=== PATIENT | female | born 1985 | race African-American/Black ===

== ENCOUNTER 2016-09-24 15:00 | Emergency (ER) | payer MEDICAID ==
[2016-09-24] MEDS ORDERED: IPRATROPIUM/ALBUTEROL 0.5-2.5 MG/3 ML AMPUL NEB ONE ×2 (15:08→16:24)
--- NOTE | 2016-09-24 15:09 | ER Document Report ---
ED Medical Screen (RME) - General Stated Complaint: COUGH Mode of Arrival: Ambulatory Information source: Patient Notes: Patient complains of flulike symptoms for the past 6 days. Patient had taken Tamiflu and steroids but denies any improvement in her symptoms. Patient complains of cough and diarrhea. Patient is still currently taking steroids. hx: Asthma I have greeted and performed a rapid initial assessment of this patient. A comprehensive ED assessment and evaluation of the patient, analysis of test results and completion of the medical decision making process will be conducted by additional ED providers. TRAVEL OUTSIDE OF THE [place] IN LAST 30 DAYS: No - Related Data Allergies/Adverse Reactions: spinach Allergy (Verified 06/10/16 09:35) Past Medical History - Past Medical History Cardiac Medical History: Reports: Hx Congestive Heart Failure - pt states resolved Pulmonary Medical History: Reports: Hx Asthma - Immunizations Hx Diphtheria, Pertussis, Tetanus Vaccination: No Physical Exam - Respiratory Respiratory status: No respiratory distress Breath sounds: Nonproductive cough, Wheezing
[2016-09-24] MEDS ORDERED: ALBUTEROL SULFATE 0.083% NEB 2.5 MG/3 ML AMPUL NEB ONE (16:24)
[2016-09-24] MEDS ORDERED: PREDNISONE 20 MG TABLET PO ONE (16:24)
--- NOTE | 2016-09-24 17:15 | ER Document Report ---
HPI - HPI Patient complains to provider of: COUGH Onset: Last week Onset/Duration: Persistent Quality of pain: Achy Severity: Severe Pain Level: 5 Context: TREATED FOR FLU LAST WEEK, STILL COUGHING. NO FEVER Associated Symptoms: Nonproductive cough, Rhinnorhea. denies: Fever Exacerbated by: Coughing Relieved by: Denies Similar symptoms previously: Yes Recently seen / treated by doctor: Yes Notes: PT HAS NOT BEEN TAKING ANY OTC COUGH/COLD MEDS TO HELP WITH SYMPTOMS. PT IS A SMOKER. - ROS ROS below otherwise negative: Yes Systems Reviewed and Negative: Yes All other systems reviewed and negative - CONSTITUTIONAL Constitutional: DENIES: Fever - EENT EENT: REPORTS: Nasal Drainage-Clear - NEURO Neurology: DENIES: Headache - CARDIOVASCULAR Cardiovascular: DENIES: Chest pain - RESPIRATORY Respiratory: REPORTS: Trouble Breathing, Coughing - GASTROINTESTINAL Gastrointestinal: DENIES: Abdominal Pain - URINARY Urinary: DENIES: Dysuria - REPRODUCTIVE Reproductive: DENIES: : - DERM Skin Color: Normal Skin Problems: None Past Medical History - General Information source: Patient - Social History Smoking Status: Current Every Day Smoker Cigarette use (# per day): Yes Chew tobacco use (# tins/day): No Frequency of alcohol use: None Drug Abuse: None Lives with: Family Family History: Reviewed & Not Pertinent Patient has suicidal ideation: No Patient has homicidal ideation: No - Past Medical History Cardiac Medical History: Reports: Hx Congestive Heart Failure - pt states resolved Pulmonary Medical History: Reports: Hx Asthma Surgical Hx: Negative - Immunizations Hx Diphtheria, Pertussis, Tetanus Vaccination: No Vertical Provider Document - CONSTITUTIONAL Agree With Documented VS: Yes Exam Limitations: No Limitations General Appearance: WD/WN, No Apparent Distress - INFECTION CONTROL TRAVEL OUTSIDE OF THE [place] IN LAST 30 DAYS: No - HEENT HEENT: Atraumatic, Normocephalic. negative: Pharyngeal Exudate, Pharyngeal Erythema, Tympanic Membrane Red, Tympanic Membrane Bulging Notes: + NASAL CONGESTION - NECK Neck: Normal Inspection, Supple - RESPIRATORY Respiratory: No Respiratory Distress, Wheezing O2 Sat by Pulse Oximetry: 100 - CARDIOVASCULAR Cardiovascular: Regular Rate, Regular Rhythm - GI/ABDOMEN Gastrointestinal: Abdomen Soft, Abdomen Non-Tender - MUSCULOSKELETAL/EXTREMETIES Musculoskeletal/Extremeties: CHERIE CASTANEDA - NEURO Level of Consciousness: Awake, Alert, Appropriate - DERM Integumentary: Warm, Dry, No Rash Course - Re-evaluation Re-evalutation: 09/24/16 17:11 LUNGS CTA AFTER 2 NEB TREATMENTS. - Vital Signs Vital signs: Temp Pulse Resp BP Pulse Ox 97.9 F 100 18 128/85 H 100 09/24/16 15:08 09/24/16 15:08 09/24/16 15:08 09/24/16 15:08 09/24/16 15:08 Discharge - Discharge Clinical Impression: Wheezing, Cough Condition: Good Disposition: HOME, SELF-CARE Additional Instructions: ANY OTC COUGH/COLD MED TO HELP WITH COLD SYMPTOMS STOP SMOKING CHEST XRAY WAS NORMAL INHALER EVERY 4 HRS X 2 DAYS, THEN EVERY 4 HRS NEEDED PREDNISONE TAPER PACK, START TOMORROW. DONE ALREADY GIVEN TODAY IN ER. FOLLOW UP WITH YOUR PCP MONDAY FOR RECHECK. RETURN NEEDED. Prescriptions: Prednisone [Deltasone 10 mg Tablet] 10 mg PO ASDIR PRN #21 tablet PRN Reason: Promethazine HCl/Codeine [Prometh-Codein 6.25-10 mg/5 ml] 5 ml PO Q6H #120 syrup Forms: Return to Work
[2016-09-24 17:44] VITALS: BP 123/78
== END 2016-09-24 17:50 | disposition home or self-care (01) ==
LOC: ER 15:00
DX: R06.2 Wheezing (principal); R05 Cough; F17.210 Nicotine dependence, cigarettes, uncomplicated
CPT/HCPCS: 94640 ×2; 99283; 71020; J7512; J7620

== ENCOUNTER 2017-05-31 17:31 | Emergency (ER) | payer SELFPAY ==
[2017-05-31] MEDS ORDERED: LIDOCAINE 1% INJ-PF (10 MG/ML) 30 ML SDV INJ ONE (18:16)
[2017-05-31] MEDS ORDERED: CEFTRIAXONE INJ 250 MG VIAL IM ONE (18:16)
[2017-05-31] MEDS ORDERED: AZITHROMYCIN 250 MG TABLET PO ONE (18:16)
--- NOTE | 2017-05-31 18:17 | ER Document Report ---
HPI - HPI Patient complains to provider of: Concern about STD Onset: Other - 6 days ago Onset/Duration: Persistent Pain Level: 0 Context: Patient states she was having intercourse 6 days ago and the condom broke. Patient states that the following day she took the Plan B pill. Patient states she has had vaginal discharge with cloudy urine and urinary frequency for the past 5 days. Patient denies any fever or abdominal tenderness. Patient would like testing for HIV as well as other STDs. Associated Symptoms: Other - Cloudy urine, urinary frequency, vaginal discharge. denies: Fever Exacerbated by: Denies Relieved by: Denies Similar symptoms previously: No Recently seen / treated by doctor: No - ROS ROS below otherwise negative: Yes Systems Reviewed and Negative: Yes All other systems reviewed and negative - CONSTITUTIONAL Constitutional: DENIES: Fever - GASTROINTESTINAL Gastrointestinal: DENIES: Nausea - URINARY Urinary: REPORTS: Frequency. DENIES: Dysuria - REPRODUCTIVE LMP: 05/14/17 Reproductive: REPORTS: Abnormal bleeding / discharge. DENIES: : - DERM Skin Color: Normal, Carpenter Skin Problems: None Past Medical History - General Information source: Patient Last Menstrual Period: 05/14/17 - Social History Smoking Status: Never Smoker Frequency of alcohol use: None Drug Abuse: None Occupation: food service sales representatives Family History: Reviewed & Not Pertinent Patient has suicidal ideation: No Patient has homicidal ideation: No - Past Medical History Cardiac Medical History: Reports: Hx Congestive Heart Failure - pt states resolved Pulmonary Medical History: Reports: Hx Asthma Renal/ Medical History: Denies: Hx Peritoneal Dialysis Surgical Hx: Negative - Immunizations Hx Diphtheria, Pertussis, Tetanus Vaccination: No Vertical Provider Document - CONSTITUTIONAL Agree With Documented VS: Yes Exam Limitations: No Limitations General Appearance: WD/WN, No Apparent Distress - INFECTION CONTROL TRAVEL OUTSIDE OF THE [place] IN LAST 30 DAYS: No - HEENT HEENT: Atraumatic, Normocephalic - NECK Neck: Normal Inspection, Supple - RESPIRATORY Respiratory: Breath Sounds Normal, No Respiratory Distress O2 Sat by Pulse Oximetry: 99 - CARDIOVASCULAR Cardiovascular: Regular Rate, Regular Rhythm, No Murmur - GI/ABDOMEN Gastrointestinal: Abdomen Soft, Abdomen Non-Tender, No Organomegaly - BACK Back: Normal Inspection. negative: CVA Tenderness-Right, CVA Tenderness-Left - MUSCULOSKELETAL/EXTREMETIES Musculoskeletal/Extremeties: MAEW - NEURO Level of Consciousness: Awake, Alert, Appropriate Motor/Sensory: No Motor Deficit - DERM Integumentary: Warm, Dry, No Rash Course - Vital Signs Vital signs: Temp Pulse Resp BP Pulse Ox 98.1 F 83 18 117/68 99 05/31/17 18:08 05/31/17 18:08 05/31/17 18:08 05/31/17 18:08 05/31/17 18:08 Discharge - Discharge Clinical Impression: Bacterial vaginosis, Concern about STD in female without diagnosis, Urinary symptom or sign Condition: Stable Disposition: HOME, SELF-CARE Instructions: Cephalexin ([facility]), Metronidazole ([facility]), Urinary Tract Infection ( [facility]), Vaginosis, Bacterial ([facility]) Additional Instructions: Return immediately for any new or worsening symptoms Followup with your primary care provider, call tomorrow to make a followup appointment You will need to follow-up with the primary care provider or the health department for further evaluation about possible concern about HIV exposure. A negative test initially does not mean that you may not still potentially have this infection. You will need repeat blood tests to rule this out. cultures are pending, we will call if you need any other treatment Prescriptions: Cephalexin Monohydrate [Keflex 500 mg Capsule] 500 mg PO BID 5 Days capsule Metronidazole [Flagyl 500 mg Tablet] 500 mg PO BID #14 tablet Referrals: [facility] [Provider Group] - Follow up as needed [facility] [NO LOCAL MD] - Follow up tomorrow
[2017-05-31 19:41] LABS: APPEARANCE,URINE SLIGHTLY-CLOUDY; BILIRUBIN,URINE NEGATIVE (NEGATIVE); GLUCOSE, URINE NEGATIVE (NEGATIVE); KETONES,URINE NEGATIVE (NEGATIVE); LEUKOCYTE ESTERASE,URINE SMALL (NEGATIVE); NITRITE,URINE NEGATIVE (NEGATIVE); PROTEIN,URINE NEGATIVE (NEGATIVE); URINE SPECIFIC GRAVITY 1.026
[2017-05-31] MEDS ORDERED: METRONIDAZOLE 500 MG TABLET PO ONE (19:50)
[2017-05-31 20:08] VITALS: BP 106/58
[2017-05-31 20:19] LABS: ADD HIVPANEL? NO; HIV (1 AND 2) ANTIBODY NEGATIVE (NEGATIVE)
[2017-05-31 21:14] LABS: CHLAM PCR NOT DETECTED (NOT DETECT)
== END 2017-05-31 20:07 | disposition home or self-care (01) ==
LOC: ER 17:31
DX: N76.0 Acute vaginitis (principal); B96.89 Other specified bacterial agents as the cause of diseases classified elsewhere; Z20.2 Contact with and (suspected) exposure to infections with a predominantly sexual mode of transmission
CPT/HCPCS: 99283; 96372; 36415; 87210; 81025; 86592; 81001; 86701; 87491; 87591; J3490; J0696

== ENCOUNTER 2017-08-20 13:34 | Emergency (ER) | payer SELFPAY ==
--- NOTE | 2017-08-20 14:06 | ER Document Report ---
ED Medical Screen (RME) - General Chief Complaint: Dizziness Stated Complaint: FEVER/STIFF NECK/DIZZY Time Seen by Provider: 08/20/17 14:04 Mode of Arrival: Ambulatory Information source: Patient TRAVEL OUTSIDE OF THE [place] IN LAST 30 DAYS: No - HPI Patient complains to provider of: fever, stiff neck Onset: Other - pt states she has had swollen lymph gland in back of her neck for several days. Now with fever and stiff neck - Related Data Allergies/Adverse Reactions: spinach Allergy (Verified 08/20/17 13:38) Home Medications: Current Home Medications No Home Medications 08/20/17 [History] Past Medical History - Social History Frequency of alcohol use: None Drug Abuse: None - Past Medical History Cardiac Medical History: Reports: Hx Congestive Heart Failure - pt states resolved Pulmonary Medical History: Reports: Hx Asthma Renal/ Medical History: Denies: Hx Peritoneal Dialysis - Immunizations Hx Diphtheria, Pertussis, Tetanus Vaccination: No Physical Exam - Vital signs Vitals: Temp Pulse Resp BP Pulse Ox 98.4 F 79 20 124/76 100 08/20/17 13:56 08/20/17 13:56 08/20/17 13:56 08/20/17 13:56 08/20/17 13:56 Course - Vital Signs Vital signs: Temp Pulse Resp BP Pulse Ox 98.4 F 79 20 124/76 100 08/20/17 13:56 08/20/17 13:56 08/20/17 13:56 08/20/17 13:56 08/20/17 13:56
[2017-08-20 14:54] LABS: ABSOLUTE EOSINOPHILS # (AUTO) 0.3 10^3/uL (0.0-0.6); ABSOLUTE LYMPHOCYTES (AUTO) 2.9 10^3/uL (0.5-4.7); ABSOLUTE MONOCYTES (AUTO) 0.7 10^3/uL (0.1-1.4); ABSOLUTE NEUT (AUTO) 3.5 10^3/uL (1.7-8.2); BASOPHILS % (AUTO) 0.3 % (0-2); EOSINOPHILS % (AUTO) 4.5 % (0-6); HEMATOCRIT 37.5 % (36.0-47.0); HEMOGLOBIN 12.1 g/dL (12.0-15.5); LYMPHOCYTES % (AUTO) 38.8 % (13-45); MEAN CORPUSCULAR HEMOGLOBIN 25.3 pg (27.0-33.4); MEAN CORPUSCULAR HGB CONC 32.4 g/dL (32.0-36.0); MEAN CORPUSCULAR VOLUME 78 fl (80-97); MONOCYTES % (AUTO) 9.9 % (3-13); PLATELET COUNT 277 10^3/uL (150-450); RED BLOOD COUNT 4.79 10^6/uL (3.72-5.28); RED CELL DISTRIBUTION WIDTH 14.9 % (11.5-14.0); SEGMENTED NEUTROPHILS % (AUTO) 46.5 % (42-78); TOTAL CELLS COUNTED % (AUTO) 100 %; WHITE BLOOD COUNT 7.5 10^3/uL (4.0-10.5)
[2017-08-20 15:03] LABS: APPEARANCE,URINE SLIGHTLY-CLOUDY; BILIRUBIN,URINE NEGATIVE (NEGATIVE); COLOR,URINE YELLOW; GLUCOSE, URINE NEGATIVE (NEGATIVE); KETONES,URINE NEGATIVE (NEGATIVE); LEUKOCYTE ESTERASE,URINE LARGE (NEGATIVE); NITRITE,URINE NEGATIVE (NEGATIVE); PROTEIN,URINE NEGATIVE (NEGATIVE); UROBILINOGEN,URINE NEGATIVE mg/dL (<2.0)
[2017-08-20 15:11] LABS: ALANINE AMINOTRANSFERASE 16 U/L (9-52); ALBUMIN 4.8 g/dL (3.5-5.0); ALKALINE PHOSPHATASE 76 U/L (38-126); ANION GAP 14 (5-19); ASPARTATE AMINO TRANSFERASE 18 U/L (14-36); BILIRUBIN,DIRECT 0.3 mg/dL (0.0-0.4); BILIRUBIN,TOTAL 0.5 mg/dL (0.2-1.3); BLOOD UREA NITROGEN 8 mg/dL (7-20); CALCIUM 10.2 mg/dL (8.4-10.2); CARBON DIOXIDE 25 mmol/L (22-30); CHLORIDE 104 mmol/L (98-107); GLUCOSE 99 mg/dL (75-110); POTASSIUM 4.4 mmol/L (3.6-5.0); SODIUM 143.1 mmol/L (137-145); TOTAL PROTEIN 8.7 g/dL (6.3-8.2)
[2017-08-20] MEDS ORDERED: OXYCODONE-ACETAMINOPHEN 5-325 MG TABLET PO ONE (16:56)
[2017-08-20] MEDS ORDERED: LIDOCAINE 1% INJ (10 MG/ML) 10 ML MDV INJ ONE (17:09)
[2017-08-20] MEDS ORDERED: LIDOCAINE 1% INJ-PF (10 MG/ML) 30 ML SDV ONE (17:13)
[2017-08-20] MEDS ORDERED: AMOXICILLIN TR/POT CLAVULANATE 500-125 MG TAB PO ONE (18:23)
--- NOTE | 2017-08-20 18:31 | ER Document Report ---
ED General - General Chief Complaint: Dizziness Stated Complaint: FEVER/STIFF NECK/DIZZY Time Seen by Provider: 08/20/17 14:04 Mode of Arrival: Ambulatory Information source: Patient TRAVEL OUTSIDE OF THE [place] IN LAST 30 DAYS: No - HPI Patient complains to provider of: Area to back of left neck Onset: Last week - She states that she has had this for approximately 1 week. It was larger and now is decreased inside. She states that it is markedly tender and when she bends her head forward she does get some pain and dizziness. Onset/Duration: Gradual Quality of pain: Burning Severity: Moderate Associated symptoms: None Exacerbated by: Movement Relieved by: Denies Similar symptoms previously: No Recently seen / treated by doctor: No - Related Data Allergies/Adverse Reactions: spinach Allergy (Verified 08/20/17 13:38) Past Medical History - General Information source: Patient - Social History Smoking Status: Never Smoker Frequency of alcohol use: None Drug Abuse: None Lives with: Family Family History: Reviewed & Not Pertinent Patient has suicidal ideation: No Patient has homicidal ideation: No - Past Medical History Cardiac Medical History: Reports: Hx Congestive Heart Failure - pt states resolved Pulmonary Medical History: Reports: Hx Asthma EENT Medical History: Reports: None Neurological Medical History: Reports: None Endocrine Medical History: Reports: None Renal/ Medical History: Reports: None. Denies: Hx Peritoneal Dialysis Malignancy Medical History: Reports: None GI Medical History: Reports: None Musculoskeltal Medical History: Reports None Psychiatric Medical History: Reports: None Traumatic Medical History: Reports: None Infectious Medical History: Reports: None Past Surgical History: Reports: None - Immunizations Hx Diphtheria, Pertussis, Tetanus Vaccination: No Review of Systems - Review of Systems Constitutional: No symptoms reported EENT: No symptoms reported Cardiovascular: No symptoms reported Respiratory: No symptoms reported Gastrointestinal: No symptoms reported Genitourinary: No symptoms reported Female Genitourinary: No symptoms reported Musculoskeletal: No symptoms reported Skin: No symptoms reported Hematologic/Lymphatic: No symptoms reported Neurological/Psychological: No symptoms reported Physical Exam - Vital signs Vitals: Temp Pulse Resp BP Pulse Ox 98.4 F 79 20 124/76 100 08/20/17 13:56 08/20/17 13:56 08/20/17 13:56 08/20/17 13:56 08/20/17 13:56 Notes: PHYSICAL EXAMINATION: GENERAL: Well-appearing, well-nourished and in mild distress secondary to discomfort of her neck. HEAD: Atraumatic, normocephalic. EYES: Pupils equal round and reactive to light, extraocular movements intact, conjunctiva are normal. ENT: Nares patent, oropharynx clear without exudates. Moist mucous membranes. NECK: Normal range of motion. Patient has a 3 x 3 nonfluctuant area to her left posterior suboccipital neck area. It is just below the skin. It is tender to palpation. There is no drainage. LUNGS: Breath sounds clear to auscultation bilaterally and equal. No wheezes rales or rhonchi. HEART: Regular rate and rhythm without murmurs ABDOMEN: Soft, nontender, nondistended abdomen. No guarding, no rebound. No masses appreciated. Female : deferred Musculoskeletal: Normal range of motion, no pitting or edema. No cyanosis. NEUROLOGICAL: Cranial nerves grossly intact. Normal speech, normal gait. Normal sensory, motor exams PSYCH: Normal mood, normal affect. SKIN: Warm, Dry, normal turgor, no rashes or lesions noted. Course - Re-evaluation Re-evalutation: 08/20/17 18:34 I did use ultrasound to assess the enlarged area of the patient's left posterior suboccipital area. There appeared to be a small area of fluctuance. I did try to introduce an 18-gauge needle to obtain fluid. However I was unable to obtain any fluid. At this point I did discuss with the patient that we will send her home on antibiotics as well as warm compresses. She is to return to the emergency department if she has any enlargement of that area, fevers, any other concerns. Patient was discharged home on [place] No. 6 and Augmentin for the next few days. She is to follow-up with care clinic or return here if she has any concerns. She left in stable condition - Vital Signs Vital signs: Temp Pulse Resp BP Pulse Ox 98.4 F 79 20 124/76 100 08/20/17 13:56 08/20/17 13:56 08/20/17 13:56 08/20/17 13:56 08/20/17 13:56 - Laboratory Result Diagrams: 08/20/17 14:19 08/20/17 14:19 Laboratory results interpreted by me: 01/08/20/17 08/20/17 14:19 14:19 14:19 MCV 78 L MCH 25.3 L RDW 14.9 H Total Protein 8.7 H Urine Blood SMALL H Ur Leukocyte Esterase LARGE H 08/20/17 18:42 [facility] strep negative Procedures - Incision and Drainage Left Posterior Neck Type: Simple Anesthetic type: 1% Lidocaine mL's of anesthetic: 2 I&D procedure: Betadine prep applied - I did not use an 18-gauge under ultrasound guidance to the patient's posterior suboccipital area. Unable to obtain any material. She tolerated the procedure well. Incision Method: Incision made with needle Adult Head Front/Back picture: 1 - Patient had a 3 cm x 4 cm tender enlargement in that area. There was a less than 1 cm area consistent with a pustule on top of that breaking to the skin. Discharge - Discharge Clinical Impression: Lymph node enlargement Condition: Stable Additional Instructions: Warm compresses to area 5 times daily. Take antibiotics as prescribed. Return to the emergency department if you have worsening symptoms fevers or any other concerns. Please follow-up to care clinic as we discussed. Prescriptions: Amox Tr/Potassium Clavulanate [Augmentin 875-125 Tablet] 1 tab PO BID 7 Days # 14 tablet Hydrocodone/Acetaminophen [[place] 5-325 mg Tabs (6 Tab/ER Disp)] 6 tab PO Q4 #6 dspk Referrals: [facility] [Provider Group] - Follow up in 3-5 days
[2017-08-20 18:46] VITALS: BP 112/77
== END 2017-08-20 18:40 | disposition home or self-care (01) ==
LOC: ER 13:34
PROC: 0H94XZZ Drainage of Neck Skin, External Approach (ICD-10-PCS; principal; 2017-08-20)
DX: R59.0 Localized enlarged lymph nodes (principal); R42 Dizziness and giddiness; R50.9 Fever, unspecified; M43.6 Torticollis
CPT/HCPCS: 99284; 36415; 87070; 87880; 85025; 81025; 86308; 80053; 81001; 10060; J3490

== ENCOUNTER 2019-03-14 22:07 | Emergency (ER) | payer SELFPAY ==
[2019-03-14] MEDS ORDERED: ASPIRIN 81 MG TABLET, CHEWABLE PO ONE (23:16)
--- NOTE | 2019-03-14 23:18 | ER Document Report ---
ED Medical Screen (RME) - General Chief Complaint: Chest Tightness Stated Complaint: CHEST PAIN Time Seen by Provider: 03/14/19 23:16 Mode of Arrival: Ambulatory Information source: Patient Notes: Patient presents reporting chest tightness yesterday that she attributed to an asthma attack. Patient states that she did use her inhaler and her wheezing resolved. Patient reports palpitations today. Patient does report a history of asthma atrial fibrillation cardiomyopathy as well as congestive heart failure. Patient states she is supposed to be taking metoprolol and has been noncompliant . Patient states that when she did have her palpitation symptoms today she did take her dose of metoprolol. I have greeted and performed a rapid initial assessment of this patient. A comprehensive ED assessment and evaluation of the patient, analysis of test results and completion of the medical decision making process will be conducted by additional ED providers. TRAVEL OUTSIDE OF THE [place] IN LAST 30 DAYS: No - Related Data Allergies/Adverse Reactions: spinach Allergy (Verified 08/20/17 13:38) Past Medical History - Past Medical History Cardiac Medical History: Reports: Hx Atrial Fibrillation, Hx Congestive Heart Failure - pt states resolved Pulmonary Medical History: Reports: Hx Asthma Renal/ Medical History: Denies: Hx Peritoneal Dialysis - Immunizations Hx Diphtheria, Pertussis, Tetanus Vaccination: No Physical Exam - Vital signs Vitals: Temp Pulse Resp BP Pulse Ox 98.0 F 56 L 18 120/81 99 03/14/19 22:28 03/14/19 22:28 03/14/19 22:28 03/14/19 22:28 03/14/19 22:28 - Respiratory Respiratory status: No respiratory distress Chest status: Nontender Breath sounds: Normal. No: Wheezing Chest palpation: Normal Course - Vital Signs Vital signs: Temp Pulse Resp BP Pulse Ox 98.0 F 56 L 18 120/81 99 03/14/19 22:28 03/14/19 22:28 03/14/19 22:28 03/14/19 22:28 03/14/19 22:28
[2019-03-15 00:12] LABS: ABSOLUTE BASOPHILS # (AUTO) 0.1 10^3/uL (0.0-0.2); ABSOLUTE EOSINOPHILS # (AUTO) 0.4 10^3/uL (0.0-0.6); ABSOLUTE LYMPHOCYTES (AUTO) 3.9 10^3/uL (0.5-4.7); ABSOLUTE MONOCYTES (AUTO) 0.6 10^3/uL (0.1-1.4); ABSOLUTE NEUT (AUTO) 2.7 10^3/uL (1.7-8.2); BASOPHILS % (AUTO) 0.7 % (0-2); EOSINOPHILS % (AUTO) 5.5 % (0-6); HEMATOCRIT 37.3 % (36.0-47.0); LYMPHOCYTES % (AUTO) 51.1 % (13-45); MEAN CORPUSCULAR HEMOGLOBIN 25.6 pg (27.0-33.4); MEAN CORPUSCULAR HGB CONC 32.2 g/dL (32.0-36.0); MEAN CORPUSCULAR VOLUME 79 fl (80-97); MONOCYTES % (AUTO) 8.1 % (3-13); PLATELET COUNT 301 10^3/uL (150-450); RED BLOOD COUNT 4.69 10^6/uL (3.72-5.28); RED CELL DISTRIBUTION WIDTH 14.6 % (11.5-14.0); SEGMENTED NEUTROPHILS % (AUTO) 34.6 % (42-78); TOTAL CELLS COUNTED % (AUTO) 100 %; WHITE BLOOD COUNT 7.7 10^3/uL (4.0-10.5)
--- NOTE | 2019-03-15 00:44 | RADIOLOGY REPORT (SQ) ---
EXAM DESCRIPTION: CLINICAL HISTORY: 33 years Female palpitations, tightness COMPARISON: 12/03/2018. FINDINGS: The cardiomediastinal silhouette appears unremarkable. No consolidating infiltrates or pleural effusions. No pneumothorax. IMPRESSION: No acute abnormality is identified.
[2019-03-15 01:38] LABS: ALBUMIN 4.5 g/dL (3.5-5.0); ALKALINE PHOSPHATASE 87 U/L (38-126); ANION GAP 8 (5-19); ASPARTATE AMINO TRANSFERASE 21 U/L (14-36); BILIRUBIN,DIRECT 0.3 mg/dL (0.0-0.4); BILIRUBIN,TOTAL 0.4 mg/dL (0.2-1.3); BLOOD UREA NITROGEN 10 mg/dL (7-20); CALCIUM 9.7 mg/dL (8.4-10.2); CARBON DIOXIDE 26 mmol/L (22-30); CHLORIDE 109 mmol/L (98-107); GLUCOSE 105 mg/dL (75-110); POTASSIUM 4.1 mmol/L (3.6-5.0); TOTAL PROTEIN 8.3 g/dL (6.3-8.2)
[2019-03-15 01:47] LABS: NT PRO BNP 69 pg/mL (<125)
[2019-03-15 01:51] LABS: TROPONIN I < 0.012 ng/mL
--- NOTE | 2019-03-15 02:11 | ER Document Report ---
ED General - General Chief Complaint: Chest Tightness Stated Complaint: CHEST PAIN Time Seen by Provider: 03/14/19 23:16 Mode of Arrival: Ambulatory Notes: 33-year-old female presents emergency department complaining of chest pressure and tightness that she states feels like there is "cornbread" in her chest and that she feels stuffy. Patient states that she is having a little bit of a flare of asthma where she had to use her inhaler 2 or 3 times yesterday and today and also is having some nasal and sinus congestion as well as postnasal drainage. Patient is concerned because the way that she is feeling right now is fairly similar to the way she felt in 2011 when she was having a flare of her congestive heart failure. Patient was diagnosed with CHF in 2009, her last assessment and echocardiogram was in 2014 and showed an ejection fraction of 68%. Patient has not been seen by kindergarten prep teacher since then. Of note patient was diagnosed with atrial fibrillation back in December and placed on metoprolol but she frequently does not take it because she already has low blood pressure and it makes her feel very weak when she takes it. Patient notes that she is worried about may be having hypothyroidism because she has gained some weight recently and has felt increasingly fatigued. Her daughter also has hypothyroidism that she is worried it may run in the family. TRAVEL OUTSIDE OF THE [place] IN LAST 30 DAYS: No - Related Data Allergies/Adverse Reactions: spinach Allergy (Verified 08/20/17 13:38) Past Medical History - General Information source: Patient - Social History Smoking Status: Never Smoker Chew tobacco use (# tins/day): No Frequency of alcohol use: None Drug Abuse: None Family History: Thyroid Disfunction - Daughter with hypothyroidism. Patient has suicidal ideation: No Patient has homicidal ideation: No - Past Medical History Cardiac Medical History: Reports: Hx Atrial Fibrillation, Hx Congestive Heart Failure - pt states resolved Pulmonary Medical History: Reports: Hx Asthma Renal/ Medical History: Denies: Hx Peritoneal Dialysis - Immunizations Hx Diphtheria, Pertussis, Tetanus Vaccination: No Review of Systems - Review of Systems Constitutional: See HPI, Weight gain EENT: See HPI, Nose congestion, Nose discharge, Sinus pressure, Sinus discharge Cardiovascular: See HPI, Chest pain Respiratory: See HPI, Short of breath Gastrointestinal: No symptoms reported -: Yes All other systems reviewed and negative Physical Exam - Vital signs Vitals: Temp Pulse Resp BP Pulse Ox 98.0 F 56 L 18 120/81 99 03/14/19 22:28 03/14/19 22:28 03/14/19 22:28 03/14/19 22:28 03/14/19 22:28 Interpretation: Bradycardic - Notes Notes: GENERAL: Alert, interacts well. No acute distress. HEAD: Normocephalic, atraumatic EYES: Pupils equal, round and reactive to light, extraocular movements intact. ENT: Oral mucosa moist, tongue midline. Turbinate edema, clear rhinorrhea, left naris has more swelling than the right side, tympanic membranes are intact but there is clear fluid behind them, there is cobblestoning in the posterior oropharynx. NECK: Full range of motion, supple, trachea midline. LUNGS: Clear to auscultation bilaterally, no wheezes, rales or rhonchi, no respiratory distress. HEART: Regular rate and rhythm, no murmurs, gallops, rubs. ABDOMEN: Soft, nontender, nondistended, bowel sounds present in all 4 quadrants. EXTREMITIES: Moves all 4 extremities spontaneously, no edema, radial and dorsalis pedis pulses 2/4 bilaterally. No cyanosis. NEUROLOGICAL: Alert and oriented x3, normal speech, biceps and patellar DTRs 2+ bilaterally. PSYCH: Normal mood, normal affect. SKIN: Warm, Dry, normal turgor, no rashes or lesions noted. Course - Re-evaluation Re-evalutation: 03/15/19 02:10 CBC unremarkable, CMP grossly unremarkable, initial cardiac enzymes negative, proBNP normal at 69, thyroid function test pending, chest x-ray unremarkable. Given patient's unusual cardiac history at this young age we will repeat a second set of cardiac enzymes. Currently there is no evidence of congestive heart failure. Suspect patient's symptoms are actually coming from her nasal congestion and viral upper respiratory infection causing a mild flare in her asthma. Currently no wheezing at this time. 03/15/19 05:01 Repeat troponin negative. Thyroid function normal. Patient will be given prednisone for her mild asthma flare. Discharged home. 03/15/19 05:02 Patient was noted to be intermittently bradycardic while in the emergency department. Discussed with patient the importance of following up with cardio logist post further management of her intermittent atrial fibrillation and for management of her previously diagnosed congestive heart failure. Stressed the importance of following with a kindergarten prep teacher who can balance her medications so that she is not going into A. fib with RVR but she is not also not having a sinus bradycardia into the 40s that makes her quite fatigued. Patient is agreeable to this plan. Has been referred to Dr. Perez. - Vital Signs Vital signs: Temp Pulse Resp BP Pulse Ox 98.0 F 56 L 18 116/91 H 100 03/14/19 22:28 03/14/19 22:28 03/15/19 03:22 03/15/19 03:22 03/15/19 03:22 - Laboratory Result Diagrams: 03/14/19 23:55 03/15/19 00:59 Laboratory results interpreted by me: 03/14/19 03/15/19 23:55 00:59 MCV 79 L MCH 25.6 L RDW 14.6 H Seg Neutrophils % 34.6 L Lymphocytes % 51.1 H Chloride 109 H Total Protein 8.3 H - EKG Interpretation by Me Additional EKG results interpreted by me: Initial EKG showed sinus bradycardia at a rate of 56, normal axis, normal intervals, no ST segment elevations or depressions, no T wave inversions per my interpretation. 03/15/19 02:10 EKG shows sinus bradycardia at a rate of 48, normal axis, normal intervals, no S T segment elevation or depression, no T wave inversions per my interpretation. Discharge - Discharge Clinical Impression: Asthma exacerbation Condition: Stable Disposition: HOME, SELF-CARE Additional Instructions: We did not find any evidence of heart attack, atrial fibrillation or active congestive heart failure today. This does not mean that you do not have problems with your heart. It is very important that you follow-up with a kindergarten prep teacher on a regular basis as an outpatient to continue to have echocardiograms to see how well your heart is pumping and to also manage her medications so that you do not develop a slow heart rate like you had today into the 40s. This can make you very tired. Today you appear to be having a flare in your asthma. Take the steroids as directed until they are gone. Return to the emergency department for any new or concerning symptoms. Prescriptions: Prednisone [Deltasone 20 mg Tablet] 2 tab PO DAILY 5 Days tablet Referrals: PRINCE PEREZ MD [ACTIVE STAFF] - Follow up as needed
[2019-03-15 02:35] LABS: FREE T3 3.95 pg/mL (2.77-5.27); FREE T4 (FREE THYROXINE) 0.94 ng/dL (0.78-2.19)
[2019-03-15 05:57] VITALS: BP 120/88
--- NOTE | 2019-03-15 08:17 | EKG REPORT ---
SEVERITY:- BORDERLINE ECG - SINUS RHYTHM BORDERLINE T ABNORMALITIES, ANT-LAT LEADS : Confirmed by: Keith Chowdhury MD 15-Mar-2019 08:17:09
--- NOTE | 2019-03-15 13:29 | EKG REPORT ---
SEVERITY:- BORDERLINE ECG - BRADYCARDIA WITH IRREGULAR RATE 43-55 : Confirmed by: Keith Chowdhury MD 15-Mar-2019 13:28:29
== END 2019-03-15 05:57 | disposition home or self-care (01) ==
LOC: ER 22:07
DX: J45.901 Unspecified asthma with (acute) exacerbation (principal); R07.9 Chest pain, unspecified; R09.81 Nasal congestion; R53.1 Weakness; I50.9 Heart failure, unspecified; R53.83 Other fatigue; I48.91 Unspecified atrial fibrillation
CPT/HCPCS: 36415; 71046; 80053; 83735; 83880; 84439; 84443; 84481; 84484; 84703; 85025; 93005; 93010; 99284

== ENCOUNTER 2019-03-27 21:35 | Emergency (ER) | payer MEDICAID ==
[2019-03-27 22:10] VITALS: BP 118/58
--- NOTE | 2019-03-27 23:16 | RADIOLOGY REPORT (SQ) ---
EXAM DESCRIPTION: XR RIBS UNILATERAL WITH CHEST COMPLETED DATE/TME: 03/27/2019 00:00 CLINICAL HISTORY: 33 years, Female, bone pain COMPARISON: 03/15/2019 chest NUMBER OF VIEWS: 3 TECHNIQUE: Frontal view the chest and 2 views of the right ribs LIMITATIONS: None. FINDINGS: Heart size is normal. Lungs are clear. No pneumothorax. Negative for right rib fracture IMPRESSION: Negative exam copyright 2010 [employer]- All Rights Reserved
== END 2019-03-28 01:00 | disposition left against medical advice (07) ==
LOC: ER 21:35
DX: Z53.21 Procedure and treatment not carried out due to patient leaving prior to being seen by health care provider (principal)

== ENCOUNTER 2019-04-29 12:54 | Emergency (ER) | payer MEDICAID ==
--- NOTE | 2019-04-29 13:47 | ER Document Report ---
ED Medical Screen (RME) - General Chief Complaint: Vaginal Discharge Stated Complaint: ABDOMINAL CRAMPING Time Seen by Provider: 04/29/19 13:38 Notes: 33-year-old G6 T3 L4 presents to confirm . She had 2 home positive tests and went to confirm today but had a negative urine test at her clinic. She also complains of heavier than normal vaginal discharge and has a history of bacterial vaginosis. Denies fevers or chills, denies nausea or vomiting, denies urinary symptoms. Exam: Well-appearing in no acute distress, respirations are even and unlabored, clear to auscultation, regular cardiac rate and rhythm, abdominal exam deferred in triage I have greeted and performed a rapid initial assessment of this patient. A comprehensive ED assessment and evaluation of the patient, analysis of test results and completion of medical decision making process will be conducted by an additional ED providers. TRAVEL OUTSIDE OF THE [place] IN LAST 30 DAYS: No - Related Data Allergies/Adverse Reactions: spinach Allergy (Verified 08/20/17 13:38) Past Medical History - Past Medical History Cardiac Medical History: Reports: Hx Atrial Fibrillation, Hx Congestive Heart Failure - pt states resolved Pulmonary Medical History: Reports: Hx Asthma Renal/ Medical History: Denies: Hx Peritoneal Dialysis - Immunizations Hx Diphtheria, Pertussis, Tetanus Vaccination: No Physical Exam - Vital signs Vitals: Temp Pulse Resp BP Pulse Ox 98.6 F 81 15 131/90 H 100 04/29/19 13:23 04/29/19 13:23 04/29/19 13:23 04/29/19 13:23 04/29/19 13:23 Course - Vital Signs Vital signs: Temp Pulse Resp BP Pulse Ox 98.6 F 81 15 131/90 H 100 04/29/19 13:23 04/29/19 13:23 04/29/19 13:23 04/29/19 13:23 04/29/19 13:23
--- NOTE | 2019-04-29 14:22 | ER Document Report ---
HPI - HPI Patient complains to provider of: Vaginal discharge urinary frequency Time Seen by Provider: 04/29/19 13:38 Onset: Last week Onset/Duration: Persistent Pain Level: Denies Context: Patient presents complaining of a need for confirmation of . Patient states she has had multiple tests recently to which have been positive and one in the office that was negative. Patient is needing confirmation of to establish her care. Patient does report vaginal discharge but states that she always has this and suspect she likely has bacterial vaginosis. Patient also reports some urinary frequency. Associated Symptoms: denies: Fever Exacerbated by: Denies Relieved by: Denies Similar symptoms previously: Yes Recently seen / treated by doctor: Yes - ROS ROS below otherwise negative: Yes Systems Reviewed and Negative: Yes All other systems reviewed and negative - CONSTITUTIONAL Constitutional: DENIES: Fever - RESPIRATORY Respiratory: DENIES: Trouble Breathing, Coughing - GASTROINTESTINAL Gastrointestinal: DENIES: Nausea, Patient vomiting - URINARY Urinary: REPORTS: Frequency. DENIES: Dysuria - REPRODUCTIVE LMP: 03/27 Reproductive: REPORTS: :, Abnormal bleeding / discharge - MUSCULOSKELETAL Musculoskeletal: DENIES: Back Pain - DERM Skin Color: Normal Skin Problems: None Past Medical History - General Information source: Patient - Social History Smoking Status: Never Smoker Frequency of alcohol use: None Drug Abuse: None Occupation: Foodservice Family History: Thyroid Disfunction - Daughter with hypothyroidism. Patient has suicidal ideation: No Patient has homicidal ideation: No - Past Medical History Cardiac Medical History: Reports: Hx Congestive Heart Failure - pt states resolved Pulmonary Medical History: Reports: Hx Asthma Renal/ Medical History: Denies: Hx Peritoneal Dialysis Surgical Hx: Negative - Immunizations Hx Diphtheria, Pertussis, Tetanus Vaccination: No Vertical Provider Document - CONSTITUTIONAL Agree With Documented VS: Yes Exam Limitations: No Limitations General Appearance: WD/WN, No Apparent Distress - INFECTION CONTROL TRAVEL OUTSIDE OF THE [place] IN LAST 30 DAYS: No - HEENT HEENT: Atraumatic, Normocephalic - NECK Neck: Normal Inspection, Supple - RESPIRATORY Respiratory: Breath Sounds Normal, No Respiratory Distress, Chest Non-Tender - CARDIOVASCULAR Cardiovascular: Regular Rate, Regular Rhythm, No Murmur - GI/ABDOMEN Gastrointestinal: Abdomen Soft, Abdomen Non-Tender - REPRODUCTIVE Female Genitalia: Abnormal Inspection - white vaginal discharge. negative: Adnexal Pain-Right, Adnexal Pain-Left - BACK Back: Normal Inspection. negative: CVA Tenderness-Right, CVA Tenderness-Left - MUSCULOSKELETAL/EXTREMETIES Musculoskeletal/Extremeties: CHERIE CASTANEDA - NEURO Level of Consciousness: Awake, Alert, Appropriate Motor/Sensory: No Motor Deficit - DERM Integumentary: Warm, Dry, No Rash Course - Vital Signs Vital signs: Temp Pulse Resp BP Pulse Ox 98.6 F 81 15 131/90 H 100 04/29/19 13:23 04/29/19 13:23 04/29/19 13:23 04/29/19 13:23 04/29/19 13:23 - Laboratory Laboratory results interpreted by me: 04/29/19 16:10 Labs- Entire Visit 04/29/19 04/29/19 04/29/19 11:40 14:40 14:56 Beta HCG, Quant < 2.39 Total Beta HCG NEGATIVE Urine Color YELLOW Urine Appearance SLIGHTLY-CLOUDY Urine pH 5.0 Ur Specific [place] 1.023 Urine Protein NEGATIVE Urine Glucose (UA) NEGATIVE Urine Ketones NEGATIVE Urine Blood NEGATIVE Urine Nitrite NEGATIVE Urine Bilirubin NEGATIVE Urine Urobilinogen 4.0 H Ur Leukocyte Esterase MODERATE H Urine WBC (Auto) 3 Urine RBC (Auto) 1 U Hyaline Cast (Auto) 1 Squamous Epi Cells Auto 5 Urine Mucus (Auto) FEW Urine Ascorbic Acid 20 H Epi Cells (Wet Prep) 3+ EPITHELIALS SEEN Bacteria (Wet Prep) 3+ BACTERIA SEEN Trichomonas (Wet Prep) NO TRICHOMONAS SEEN Vaginal WBC 2+ WBCS SEEN Vaginal RBC FEW RBCS SEEN Vaginal Yeast NO YEAST SEEN Discharge - Discharge Clinical Impression: Bacterial vaginosis UTI (urinary tract infection) Qualifiers: Urinary tract infection type: site unspecified Hematuria presence: without hematuria Qualified Code(s): N39.0 - Urinary tract infection, site not specified Condition: Stable Disposition: HOME, SELF-CARE Instructions: Cephalexin ([facility]), Metronidazole ([facility]), Urinary Tract Infection ([facility]), Vaginosis, Bacterial ([facility]) Additional Instructions: Return immediately for any new or worsening symptoms Followup with your primary care provider, call tomorrow to make a followup appointment Prescriptions: Metronidazole [Flagyl 500 mg Tablet] 500 mg PO BID #14 tablet Cephalexin Monohydrate [Keflex 500 mg Capsule] 500 mg PO BID 5 Days capsule Forms: Return to Work Referrals: [facility] [Provider Group] - Follow up as needed
[2019-04-29 15:02] LABS: BACTERIA (WET MOUNT) 3+ BACTERIA SEEN; EPITHELIALS (WET MOUNT) 3+ EPITHELIALS SEEN; RBCS (WET MOUNT) FEW RBCS SEEN; T.VAGINALIS (WET MOUNT) NO TRICHOMONAS SEEN; WBCS (WET MOUNT) 2+ WBCS SEEN; YEAST (WET MOUNT) NO YEAST SEEN
[2019-04-29 15:08] LABS: APPEARANCE,URINE SLIGHTLY-CLOUDY; BILIRUBIN,URINE NEGATIVE (NEGATIVE); COLOR,URINE YELLOW; GLUCOSE, URINE NEGATIVE (NEGATIVE); KETONES,URINE NEGATIVE (NEGATIVE); LEUKOCYTE ESTERASE,URINE MODERATE (NEGATIVE); NITRITE,URINE NEGATIVE (NEGATIVE); PROTEIN,URINE NEGATIVE (NEGATIVE); URINE SPECIFIC GRAVITY 1.023
[2019-04-29] MEDS ORDERED: METRONIDAZOLE 500 MG TABLET PO ONE (16:10)
[2019-04-29] MEDS ORDERED: CEPHALEXIN 500 MG CAPSULE PO ONE (16:10)
[2019-04-29] MEDS ORDERED: IBUPROFEN 800 MG TABLET PO ONE (16:13)
[2019-04-29 16:32] LABS: CHLAM PCR NOT DETECTED (NOT DETECT)
[2019-04-29 16:42] VITALS: BP 112/77
== END 2019-04-29 16:43 | disposition home or self-care (01) ==
LOC: ER 12:54
DX: N39.0 Urinary tract infection, site not specified (principal); N76.0 Acute vaginitis; B96.89 Other specified bacterial agents as the cause of diseases classified elsewhere; R35.0 Frequency of micturition; I50.9 Heart failure, unspecified; J45.909 Unspecified asthma, uncomplicated
CPT/HCPCS: 99283; 36415; 87086; 87210; 84702; 81001; 87491; 87591; J3490 ×2

== ENCOUNTER 2020-04-26 18:23 | Emergency (ER) | payer MEDICAID ==
[2020-04-26] MEDS ORDERED: ONDANSETRON ODT 4 MG TAB (6 TAB/ER DISP) PO PRN (20:46)
--- NOTE | 2020-04-26 20:47 | ER Document Report ---
ED GI/ - General Chief Complaint: Nausea/Vomiting Stated Complaint: NAUSEA,VOMITING,HEADACHE Time Seen by Provider: 04/26/20 19:22 Primary Care Provider: RABIA LAY MD [Primary Care Provider] - Follow up as needed Mode of Arrival: Ambulatory Information source: Patient Notes: This 32-year-old woman presents to the emergency department with a complaint of nausea and vomiting which is been ongoing for the past 2 days. She is also had diarrhea, she is on antibiotics for a urinary infection and a dental problem. He is concerned that her nausea and vomiting GI upset may be related to the medications. She denies fever or hematemesis. TRAVEL OUTSIDE OF THE [place] IN LAST 30 DAYS: No - Related Data Allergies/Adverse Reactions: spinach Allergy (Verified 08/20/17 13:38) Past Medical History - Social History Smoking Status: Never Smoker Chew tobacco use (# tins/day): No Frequency of alcohol use: None Drug Abuse: None Family History: Reviewed & Not Pertinent, Thyroid Disfunction - Daughter with hypothyroidism. - Past Medical History Cardiac Medical History: Reports: Hx Atrial Fibrillation, Hx Congestive Heart Failure - pt states resolved Pulmonary Medical History: Reports: Hx Asthma Renal/ Medical History: Denies: Hx Peritoneal Dialysis - Immunizations Hx Diphtheria, Pertussis, Tetanus Vaccination: No Review of Systems - Review of Systems Notes: Constitutional: Negative for fever. HENT: Negative for sore throat. Eyes: Negative for visual changes. Cardiovascular: Negative for chest pain. Respiratory: Negative for shortness of breath. Gastrointestinal: See HPI Genitourinary: Negative for dysuria. Musculoskeletal: Negative for back pain. Skin: Negative for rash. Neurological: Negative for headaches, weakness or numbness. 10 point ROS negative except as marked above and in HPI. Physical Exam - Vital signs Vitals: Temp 98.4 F 04/26/20 18:23 - Notes Notes: PHYSICAL EXAMINATION: Physical Exam: General: Well-nourished well-developed female in no acute distress HEENT: NC/AT, pupils equal round and reactive to light, MM moist,nares clear, oropharynx clear, airway patent Neck: supple, no adenopathy, no masses. Good range of motion Lungs: clear, no wheezing, no rales no rhonchi CVS: Regular rate and rhythm no murmur gallop or rub Abdomen: Soft, active, nontender, no masses, no hepatosplenomegaly Ext: No edema, clubbing or cyanosis. Neuro: Alert and responsive, moving all 4 extremities on command, cranial nerves intact, no focal findings Skin: Intact no open lesions, no rash PSYCH: Normal mood, normal affect. Course - Vital Signs Vital signs: Temp Pulse Resp BP Pulse Ox 98.1 F 75 17 129/87 H 100 04/26/20 20:59 04/26/20 20:59 04/26/20 20:59 04/26/20 20:59 04/26/20 20:59 - Laboratory Laboratory results interpreted by me: 04/26/20 19:42 Urine Blood MODERATE H Urine Urobilinogen 2.0 H Ur Leukocyte Esterase LARGE H Urine HCG, Qual POSITIVE H Discharge - Discharge Clinical Impression: Incidental Nausea and vomiting Qualifiers: Vomiting type: unspecified Vomiting Intractability: unspecified Qualified Code(s): R11.2 - Nausea with vomiting, unspecified Headache Qualifiers: Headache type: unspecified Headache chronicity pattern: acute headache Intractability: not intractable Qualified Code(s): R51 - Headache UTI (urinary tract infection) Qualifiers: Urinary tract infection type: acute cystitis Hematuria presence: with hematuria Qualified Code(s): N30.01 - Acute cystitis with hematuria Condition: Good Disposition: HOME, SELF-CARE Instructions: Antinausea Medication ([facility]) Additional Instructions: You were seen in the emergency department tonight with nausea vomiting and headache. This appears that your symptoms are related to a viral infection. You can use medications as prescribed Zofran for nausea Tylenol for headache and push fluids. Since you were tested for coronavirus you need to continue to be quarantining and using a mask with social distancing. Please begin probiotic to offset the symptoms of diarrhea since beginning your antibiotics. HOME CARE INSTRUCTIONS & INFORMATION: Thank you for choosing us for your medical needs. We hope you're satisfied with the care you received. After you leave, you must properly care for your problem and, at the same time, observe its progress. Any condition can change. Some illnesses can change rapidly over hours or days. If your condition worsens, return to the Emergency Department or see your physician promptly. ABOUT YOUR X-RAYS AND EKG'S: If you had an EKG or X-rays taken, they have been read by the Emergency Physician. The X-rays and EKG's will also be read by a Radiologist or Unhairing Inspector within 24 hours. If discrepancies are noted, you will be notified by telephone. Please be certain the ED has a correct telephone number & address where you can be reached. Also, realize that some fractures or abnormalities do not show up on initial X-rays. If your symptoms continue, see your physician. ABOUT YOUR LABORATORY TEST: If you had laboratory tests, the results have been reviewed by the Emergency Physician. Some test results (for example cultures) may not be available for several days. You will be contacted if any test result shows you need additional treatment. Please be certain the ED has a correct telephone number and address where you can be reached. ABOUT YOUR MEDICATIONS: You will receive instructions on how to take your medicine on the prescription label you receive. Additional information may be provided by the Pharmacy. If you have questions afterwards, call the ED for clarification or further instructions. Some prescribed medications may cause drowsiness. Do not perform tasks such as driving a car or operating machinery without consulting your Pharmacist. If you feel you need a refill of pain medication, your condition will need re-evaluation. Please do not call for a refill of any medication. ABOUT YOUR SIGNATURE: Signature of this document acknowledges to followin. Understanding that you received emergency treatment and that you may be released before al medical problems are known or treated. Please be certain the ED has a correct phone number & address where you can be reached. 2. Acknowledgement that you will arrange for follow-up care as recommended. 3. Authorization for the Emergency Physician to provide information to your follow-up Physician in order to maximize your care. AT ANY TIME, IF YOUR SYMPTOMS CHANGE SIGNIFICANTLY OR WORSEN OR YOU DEVELOP NEW SYMPTOMS, RETURN TO THE EMERGENCY DEPARTMENT IMMEDIATELY FOR RE-EVALUATION. OUR GOAL IS TO PROVIDE EXCELLENT MEDICAL CARE! WE HOPE THAT WE HAVE MET YOUR EXPECTATIONS DURING YOUR EMERGENCY DEPARTMENT VISIT AND THAT YOU FEEL YOU HAVE RECEIVED EXCELLENT CARE! Prescriptions: Ondansetron [Zofran Odt 4 mg Tablet] 1 tab PO Q4H PRN #10 tab.rapdis PRN Reason: For Nausea/Vomiting Referrals: RABIA LAY MD [Primary Care Provider] - Follow up as needed
[2020-04-26 21:00] VITALS: BP 129/87
[2020-04-26 21:29] LABS: APPEARANCE,URINE SLIGHTLY-CLOUDY; BILIRUBIN,URINE NEGATIVE (NEGATIVE); COLOR,URINE STRAW; GLUCOSE, URINE NEGATIVE (NEGATIVE); KETONES,URINE NEGATIVE (NEGATIVE); LEUKOCYTE ESTERASE,URINE LARGE (NEGATIVE); NITRITE,URINE NEGATIVE (NEGATIVE); PROTEIN,URINE NEGATIVE (NEGATIVE); URINE SPECIFIC GRAVITY 1.008
== END 2020-04-26 21:00 | disposition home or self-care (01) ==
LOC: ER 18:23
DX: R51 Headache (principal); R11.2 Nausea with vomiting, unspecified; I48.91 Unspecified atrial fibrillation
CPT/HCPCS: 81001; 81025; 99283